=== PATIENT | female | born 1990 | race Caucasian/White ===

== ENCOUNTER 2017-06-05 21:12 | Emergency (ER) | payer MEDICAID, OTHER ==
[~2017-06-05] VITALS: Ht 152.4 cm; Wt 80.0 kg
[~2017-06-05 21:12] MED LIST: OXYC-360 PO; PREN0.01 PO
[2017-06-05 21:58] VITALS: BP 130/61; PULSE 91; RESP 18; TEMP 99.5; O2SAT 98
[2017-06-06] MEDS ORDERED: MACR100C2 PO (09:01)
[2017-06-06] MEDS ORDERED: PHEN0.4T PO (09:01)
== END 2017-06-05 23:55 | disposition left against medical advice (07) ==
LOC: NED 21:12
DX: R10.9 Unspecified abdominal pain (principal)
CPT/HCPCS: 99281

== ENCOUNTER 2017-06-06 06:27 | Emergency (ER) | payer MEDICAID ==
[~2017-06-06] VITALS: Ht 152.4 cm; Wt 86.0 kg
[2017-06-06 06:33] VITALS: BP 125/66; PULSE 84; RESP 18; TEMP 99.3; O2SAT 98
[2017-06-06 07:41] VITALS: BP 122/69; PULSE 84; RESP 16; TEMP 99.3; O2SAT 98
[2017-06-06 08:03] LABS: BLOOD, URINE LARGE (NEG); GLUCOSE,URINE NEG (NEG); KETONE, URINE 80 OR GREATER mg/dL (NEG); NITRITE,URINE NEG (NEG); PH, URINE 6.5 (5.0-8.5); URINE COLOR YELLOW (YELLW/STRAW); URINE LEUKOCYTE ESTERASE SMALL (NEG)
[2017-06-06 08:08] LABS: BILIRUBIN, URINE NEG (NEG)
[2017-06-06 08:19] LABS: BACTERIA, URINE OCC /hpf; WHITE BLOOD CELL CLUMPS OCC
[2017-06-06] MEDS ORDERED: MACR100C2 PO (09:01)
[2017-06-06] MEDS ORDERED: PHEN0.4T PO (09:01)
--- NOTE | 2017-06-06 09:01 | PD ---
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 She denies any vomiting, diarrhea, unusual vaginal discharge, or other issues. Modifying Factors: None Associated Signs & Symptoms: Lower back discomfort, lower abdominal discomfort, nausea, chills, blood in the urine Risk Factors: None PFSH Past Medical History Diminished Hearing: No LMP: 05/30/17 : 2 Para: 1 Past Surgical History Section: Yes Social History Alcohol Use: No Tobacco Use: No Substance Use: No Allergies-Medications (Allergen,Severity, Reaction): Coded Allergies: No Known Allergies (Verified Adverse Reaction, Unknown, 06/05/17) Reported Meds & Prescriptions Reported Meds & Active Scripts Active Pyridium (Phenazopyridine HCl) 100 Mg Tab 100 Mg PO Q8H PRN Macrobid (Nitrofurantoin Monoh/Nitrofur Macro) 100 Mg Cap 100 Mg PO BID 7 Days Reported Percocet (Oxycodone/Acetaminophen) 5 Mg/325 Mg Tab 1 Tab PO Q4HPRN FOR PAIN Vit ( Plus) (Prenat Multivit/[place]/Iron/Folic Ac) Tab 1 Tab PO DAILY Review of Systems Except as stated in HPI: all other systems reviewed are Neg Physical Exam Narrative GENERAL: Well-developed young female patient currently and mild distress. Awake and oriented 3. SKIN: Focused skin assessment warm/dry. HEAD: Atraumatic. Normocephalic. EYES: Pupils equal and round. No scleral icterus. No injection or drainage. ENT: No nasal bleeding or discharge. Mucous membranes pink and moist. NECK: Trachea midline. No JVD. CARDIOVASCULAR: Regular rate and rhythm. No murmur appreciated. RESPIRATORY: No accessory muscle use. Clear to auscultation. Breath sounds equal bilaterally. GASTROINTESTINAL: Abdomen soft, mild suprapubic tenderness without guarding or rebound, nondistended. Hepatic and splenic margins not palpable. BACK: No CVA tenderness. No rash. No point tenderness on palpation of the spine. MUSCULOSKELETAL: No obvious deformities. No clubbing. No cyanosis. No edema. NEUROLOGICAL: Awake and alert. No obvious cranial nerve deficits. Motor grossly within normal limits. Normal speech. PSYCHIATRIC: Appropriate mood and affect; insight and judgment normal. Data Data Last Documented VS Vital Signs Date Time Temp Pulse Resp B/P (MAP) Pulse Ox O2 Delivery O2 Flow Rate FiO2 06/06/17 07:41 99.3 84 16 122/69 (86) 98 Orders Orders Urinalysis - C+S If Indicated (06/06/17 07:50) Ed Urine Pregnancytest Poc (06/06/17 07:50) Urine Culture (06/06/17 07:55) Labs Laboratory Tests Test 06/06/17 07:55 Urine Collection Type CLEAN CATCH Urine Color YELLOW Urine Turbidity SL CLOUDY Urine pH 6.5 Urine Specific [place] GREATER/EQUAL 1.030 Urine Protein 30 mg/dL Urine Glucose (UA) NEG mg/dL Urine Ketones 80 OR GREATER mg/dL Urine Occult Blood LARGE Urine Nitrite NEG Urine Bilirubin NEG Urine Urobilinogen 2.0 MG/DL Urine Leukocyte Esterase SMALL Urine RBC 20-24 /hpf Urine WBC 9-14 /hpf Urine WBC Clumps OCC Urine Squamous Epithelial Cells 6-8 /hpf Urine Bacteria OCC /hpf Microscopic Urinalysis Comment CULTURE INDICATED Urine Collection Time 07:55 MDM Medical Decision Making Medical Screen Exam Complete: Yes Emergency Medical Condition: Yes Medical Record Reviewed: Yes Differential Diagnosis Gastroenteritis versus UTI versus Narrative Course She is negative for . UA shows significant UTI. Abdomen is fairly benign and not suspecting acute intra-abdominal process. At this point, my plan would be to release her with treatment for UTI. Return for worsening in symptoms as necessary. The plan has been discussed with her and she states understanding. Diagnosis Primary Impression: UTI (urinary tract infection) Med/Other Pt SpecificInfo: Prescription(s) given Scripts Phenazopyridine (Pyridium) 100 Mg Tab 100 MG PO Q8H Y for DYSURIA, #12 TAB 0 Refills Prov: Mary Rodrigues MD 06/06/17 Nitrofurantoin Monohydrate Macrocrystals (Macrobid) 100 Mg Cap 100 MG PO BID for Infection for 7 Days, #14 CAP 0 Refills Prov: Mary Rodrigues MD 06/06/17 Disposition: 01 DISCHARGE HOME Condition: Stable Austin Rodriguese MD Jun 06, 2017 09:01
[2017-06-06 09:20] VITALS: BP 125/63; PULSE 70; RESP 16; O2SAT 97
== END 2017-06-06 09:50 | disposition home or self-care (01) ==
LOC: PHED 06:27
DX: N39.0 Urinary tract infection, site not specified (principal); R31.9 Hematuria, unspecified; M54.5 Low back pain; R11.0 Nausea; R68.83 Chills (without fever)
CPT/HCPCS: 81001; 84703; 87086; 99283